=== PATIENT | female | born 1960 | race Caucasian/White ===

== ENCOUNTER 2018-06-05 08:25 | Emergency (ER) | payer SELFPAY ==
[~2018-06-05] VITALS: Ht 162.6 cm; Wt 82.0 kg
[2018-06-05 09:08] LABS: BASOPHILS % 0.5 % (0.0-2.0); EOSINOPHILS % 3.5 % (0.0-5.0); HEMATOCRIT. 41.6 % (36.0-48.0); HEMOGLOBIN. 13.9 g/dL (12.0-16.0); LYMPHOCYTES % 37.3 % (20.0-50.0); MEAN CORPUSCULAR HEMOGLOBIN 30.1 pg (28.0-32.0); MEAN CORPUSCULAR VOLUME 90.4 fL (81.0-99.0); MEAN PLATELET VOLUME 8.5 fl (7.4-10.4); MONOCYTES % 6.1 % (2.0-8.0); NEUTROPHILS % 52.6 % (40.0-76.0); PLATELET 257 x1000/uL (130-400); RED BLOOD CELL COUNT 4.61 mill/uL (4.2-5.4); RED CELL DISTRIBUTION WIDTH 13.9 % (11.6-14.6)
[2018-06-05 09:14] LABS: CHLORIDE 109 mEq/L (98-107)
[2018-06-05] MEDS ORDERED: ACETAMINOPHEN 500MG TABLET PO ONE (09:15)
[2018-06-05 10:45] VITALS: BP 150/78
== END 2018-06-05 10:59 | disposition home or self-care (01) ==
LOC: ER 08:30
DX: R51 Headache (principal); R68.84 Jaw pain; K13.79 Other lesions of oral mucosa; R53.1 Weakness; M79.10 Myalgia, unspecified site; I10 Essential (primary) hypertension
CPT/HCPCS: 36415; 71045; 83880; 84484; 93005; 99284